=== PATIENT | male | born 1995 | race Two or more races ===

== ENCOUNTER 2022-02-21 18:54 | Emergency (ER) | payer MEDICAID ==
[~2022-02-21 18:54] MED LIST: ALBU18; BUPR100T71; BUPR200T3; DICY20TA; FLUT100A; FLUT44AE; LORA10TA6; SERDISK; TRAZ50TA2; TRAZPOW
== END 2022-02-21 20:45 | disposition left against medical advice (07) ==
LOC: ER 18:54
DX: T78.40XA Allergy, unspecified, initial encounter (principal); Z53.21 Procedure and treatment not carried out due to patient leaving prior to being seen by health care provider; X58.XXXA Exposure to other specified factors, initial encounter

== ENCOUNTER 2023-01-31 08:02 | Emergency (ER) | payer MEDICAID ==
[~2023-01-31] VITALS: Ht 165.1 cm; Wt 87.0 kg
[~2023-01-31 08:02] MED LIST changes: -BUPR200T3; +BUPR200T49; +TRAZ-227; -TRAZ50TA2
[2023-01-31 08:42] VITALS: BP 134/60; PULSE 100; RESP 18; TEMP 98.9; O2SAT 98
[2023-01-31] MEDS ORDERED: DexAMETHasone SOD PHOS 10MG/1ML VIAL INJ PO ONE (09:00)
[2023-01-31] MEDS ORDERED: ACETAMINOPHEN 500 MG TAB PO ONE (09:00)
[2023-01-31] MEDS ORDERED: METH4PAK PO (09:44)
[2023-01-31] MEDS ORDERED: IBUP1TAB5 PO (09:44)
== END 2023-01-31 09:56 | disposition home or self-care (01) ==
LOC: ER 08:02
DX: J02.8 Acute pharyngitis due to other specified organisms (principal); J45.909 Unspecified asthma, uncomplicated; F17.210 Nicotine dependence, cigarettes, uncomplicated; F15.90 Other stimulant use, unspecified, uncomplicated
CPT/HCPCS: 99283; J1100